=== PATIENT | male | born 1985 | race Caucasian/White ===

== ENCOUNTER 2016-12-19 14:28 | Emergency (ER) | payer OTHER ==
[~2016-12-19] VITALS: Ht 175.3 cm; Wt 95.9 kg
[2016-12-19 14:39] VITALS: TEMP 36.9; Ht 175.3 cm; Wt 95.9 kg
--- NOTE | 2016-12-19 15:45 | EMERGENCY ROOM VISIT NOTE ---
History Report prepared by Bia: Rafa Brown Under the Supervision of: Dr. Felicity Pisano D.O. First contact with patient: 15:00 Chief Complaint: OTHER COMPLAINT Stated Complaint: INADVERTENT OVERDOSE History of Present Illness The patient is a 31 year old male who presents to the Emergency Room with complaints of a sudden possible drug poisoning that began prior to arrival. 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 He states that he smelled what he thought to be marijuana. The patient states that he asked the patient to give him the substance and asked what it was. He was told that it was black dust. The patient states that there is known K2 going around their facility. He states that the substance was rolled into a cigarette and taken to be tested. The patient states that the CO threw the substance in the trash. He states that he then started feeling spacey, had difficulty forming sentences, and became hot. The patient states that he noticed his heart rate increase, and noticed his emotions go all over the place. He additionally reports difficulty focusing. The patient states that he was evaluated at medical in the long term and was sent here for further testing and evaluation. He states that he was with his sergeant who is having no symptoms. The patient states that he almost lost control of his bladder. Source of History: patient Onset: prior to arrival Position: other (global) Quality: other (possible drug poisoning) Timing: other (sudden) Note: Associated Symptoms: heart rate increase, difficulty focusing, emotions all over the place, difficulty forming sentences, became hot, almost lost control of bladder. Review of Systems See HPI for pertinent positives & negatives. A total of 10 systems reviewed and were otherwise negative. Past Medical & Surgical Medical Problems: (1) Bronchitis (2) Finger fracture, left (3) Left elbow fracture Surgical Problems: (1) History of appendectomy Family History Patient reports no known family medical history. Social History Smoking Status: Current Some Day Smoker Alcohol Use: occasionally Housing Status: lives with significant other Occupation Status: employed Current/Historical Medications No Active Prescriptions or Reported Meds Allergies Coded Allergies: No Known Allergies (Unverified , 05/15/13) Physical Exam Vital Signs Date Time Temp Pulse Resp B/P Pulse Ox O2 Delivery O2 Flow Rate FiO2 12/19/16 16:33 82 17 96 12/19/16 16:05 130/75 12/19/16 16:03 77 15 96 12/19/16 15:33 81 20 97 12/19/16 15:28 78 17 97 12/19/16 15:04 132/89 12/19/16 14:58 77 16 97 12/19/16 14:57 Room Air 12/19/16 14:41 88 12/19/16 14:39 36.9 92 18 152/90 98 Room Air 12/19/16 14:35 152/90 Physical Exam General: The patient appears flushed. HEENT: Head - normocephalic and atraumatic Pupils are equal, round, and reactive to light. Extraocular eye muscles are intact, and sclera are anicteric. Nose - moist nasal mucosa without discharge. Mouth - moist buccal mucosa. Oropharynx is nonerythematous and there is no tonsillar exudate or edema noted. Neck: Supple; no JVD, nuchal rigidity, cervical lymphadenopathy. Heart: Tachycardic rate and rhythm. There is a normal S1 and S2 with no murmurs , clicks, or gallops appreciated. Lungs: Clear to auscultation bilaterally with no wheezes, rales, or rhonchi. Abdomen: Soft, completely nontender, nondistended, with good bowel sounds. There are no palpable pulsatile masses or hepatosplenomegaly. There is no guarding, rigidity, or rebound noted. Extremities: No evidence of cyanosis, clubbing, or edema. There are easily palpable peripheral pulses. Skin: warm and dry with good turgor and no rashes. Medical Decision & Procedures Laboratory Results Test 12/19/16 14:20 Urine Opiates Screen NEG (NEG) Urine Methadone, Qualitative NEG (NEG) Urine Barbiturates NEG (NEG) Urine Phencyclidine (PCP) Level NEG (NEG) Ur Amphetamine/Methamphetamine NEG (NEG) MDMA (Ecstasy) Screen NEG (NEG) Urine Benzodiazepines Screen NEG (NEG) Urine Cocaine Metabolite NEG (NEG) Urine Marijuana (THC) NEG (NEG) Laboratory results per my review. ED Course 1313: Past medical records reviewed. The patient was evaluated in room B9. A complete history and physical exam was performed. A urine tox screen was obtained. The patient was in no acute distress on my physical exam. He was allowed to rest comfortably in a quiet room. His vital signs returned to normal. We did some further investigation with the inmate who was also a patient here in the emergency Department with regards to what the drug was that he was using. He referred to it as "black dust." He thought that it was a synthetic marijuana. Sometimes black dust refers to PCP. 1637: I reevaluated the patient and he is feeling much better. I discussed the exam findings with the patient and I discussed the treatment plan. He verbalized complete understanding and agreement. He is ready to go home. Medical Decision The patient is a 31 year old male who presents to the ED with a sudden possible drug poisoning. Differential diagnosis includes inhalation poisoning, transdermal poisoning. 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 It was thought to be synthetic marijuana or PCP. The patient began to have symptoms and felt disoriented. While the patient was here in the emergency department the symptoms have subsided. The patient did touch the rolled cigarette being used by the inmate but I do not believe that this was a absorption type poisoning more likely inhalation from the smoke. The patient was told to return to the emergency department if he had worsening symptoms. Impression Primary Impression: Accidental poisoning by drug Scribe Attestation The scribe's documentation has been prepared under my direction and personally reviewed by me in its entirety. I confirm that the note above accurately reflects all work, treatment, procedures, and medical decision making performed by me. Departure Information Dispostion Home / Self-Care Prescriptions No Active Prescriptions or Reported Meds Referrals Justice Jordan III, M.D. (PCP) Forms HOME CARE DOCUMENTATION FORM, IMPORTANT VISIT INFORMATION, WORK / SCHOOL INSTRUCTIONS Patient Instructions My [facility] Additional Instructions REst. Return to the ER for any worsening symptoms
[2016-12-19 16:05] VITALS: BP 130/75
[2016-12-19 16:05] LABS: BENZODIAZEPINE, URINE NEG (NEG); COCAINE,URINE NEG (NEG); PHENCYCLIDINE, URINE NEG (NEG)
[2016-12-19 16:33] VITALS: PULSE 82; O2SAT 96
== END 2016-12-19 17:01 | disposition home or self-care (01) ==
LOC: EDBD 14:28 → C.EDB 14:29
DX: T40.7X1A Poisoning by cannabis (derivatives), accidental (unintentional), initial encounter (principal); Y92.89 Other specified places as the place of occurrence of the external cause; Y99.0 Civilian activity done for income or pay; F17.200 Nicotine dependence, unspecified, uncomplicated; Z87.81 Personal history of (healed) traumatic fracture; Z98.890 Other specified postprocedural states

== ENCOUNTER 2017-01-11 18:56 | Emergency (ER) | payer OTHER ==
[~2017-01-11] VITALS: Ht 175.3 cm; Wt 94.0 kg
[2017-01-11 19:03] VITALS: TEMP 36.7; Ht 175.3 cm; Wt 94.0 kg
[2017-01-11] MEDS ORDERED: XYLOCAINE 1%/SOD BICARB 20 ML VIAL INFIL STA (19:28)
[2017-01-11] MEDS ORDERED: BUPIVACAINE 0.5 % 5 MG/1 ML MPF 30ML VIAL INFIL STA (19:28)
[2017-01-11] MEDS ORDERED: CETI10TA84 PO (19:35)
--- NOTE | 2017-01-11 20:03 | DIAGNOSTIC IMAGING REPORT ---
LEFT THUMB RADIOGRAPHS CLINICAL HISTORY: Left thumb nail partial amputation COMPARISON: None FINDINGS: Alignment of the left thumb is anatomic. There is no acute fracture. Joint spaces are preserved. IMPRESSION: No acute fracture or dislocation of the left thumb. Electronically signed by: Catrachito Be M.D. 01/11/2017 8:02 PM Dictated Date/Time: 01/11/2017 8:01 PM
--- NOTE | 2017-01-11 20:48 | EMERGENCY ROOM VISIT NOTE ---
ED Visit Note First contact with patient: 19:20 Chief Complaint: "Left thumbnail partially removed". History of Present Illness: This patient is a 31-year-old male who presents to the Emergency Department via private vehicle for evaluation of their left thumb nail partial removal/laceration . Patient sustained the injury 1 hour prior to arrival, while at home attempting to move retaining block. He believes it as he was transporting one of the blocks, his left medial aspect of the fingernail caught a block causing it to be partially disrupted. He immediately ran this under water, and covered with a bandage. He went to [facility], who sent him here. He rates his pain as a 4/10. There is moderate bleeding at the time of injury. He is left-handed. His tetanus is up-to-date as of 3 years ago. He denies any numbness or tingling in the distal extremity Medications: None Allergies: No known allergies PMH: Bronchitis, appendectomy, plate and screws of leg SHx: Patient lives at home with ROS: All pertinent positive and negative review of systems are appropriately documented in the History of Present Illness. Physical Exam: VITAL SIGNS - Vital signs and nursing notes were reviewed. GENERAL -31-year-old male appearing his stated age who is in no acute distress. Communicates well with provider and answers questions appropriately. SKIN - the left thumb nail is slightly displaced, distally displaced at the location of the lateral insertion of the fingernail. Fingernail is partially lifted up over top of the skin. This is for greater than half the fingernail. It does appear to be still intact. There is a small associated laceration at the side of the nailbed. There is no active bleeding noted. MUSCULOSKELETAL - Laceration as described above. +5/5 strength appreciated of the affected digit. Full range of motion of the affected digit. NEUROLOGIC -he is neurovascularly intact in the affected digit. VASCULAR - Capillary refill was brisk. IMAGING: LEFT THUMB RADIOGRAPHS CLINICAL HISTORY: Left thumb nail partial amputation COMPARISON: None FINDINGS: Alignment of the left thumb is anatomic. There is no acute fracture. Joint spaces are preserved. IMPRESSION: No acute fracture or dislocation of the left thumb. Electronically signed by: Catrachito Be M.D. 01/11/2017 8:02 PM Dictated Date/Time: 01/11/2017 8:01 PM ED Course: Patient was seen and evaluated by myself. Risks and benefits of performing primary wound closure with nail bed repair versus no repair were discussed with the patient who verbalizes understanding. Verbal consent was obtained prior to performing the procedure. Radiograph was obtained of the thumb to rule out fracture secondary to mechanism of injury and presentation. 6 cc of 50/50 ratio 1% buffered lidocaine and 0.5%. Cane was used to perform a digital block of the left first digit. The wound was cleansed and prepped in the typical sterile fashion utilizing normal saline and Betadine. The wound was sterilely draped. Once proper anesthetization was established, the wound was further examined and demonstrated a near completely removed nail, that with gentle manipulation was lifted, and was cleansed underneath. This region was then gently placed back under the cuticle to restore anatomic location. Patient tolerated this very well and noted that he felt 0 pain after anesthetization. The wound was copiously irrigated with normal saline. The nail was then distally tacked using 2 simple, 4-0 nylon sutures with the nail being from was secured in anatomic position. There was no laceration underneath the nail. Nail bed was intact. It did appear healthy. There is a small piece of skin that continued to remain adhered to the nail at the lateral medial most aspect. This was excised. Patient tolerated the procedure well. No complications were met. The wound was cleansed and dressed with a Bacitracin dressing. Patient was offered metal splint for fixation and declined. Patient educated on worrisome symptoms for return visit to the Emergency Department. Patient discharged to home in good condition. In the evaluation and treatment of this patient, the following differential diagnoses were considered: Finger Fracture, Finger Dislocation, Finger Sprain, Finger Contusion, Jersey Finger, or Mallet Finger. Problem List Medical Problems: (1) Bronchitis Status: Resolved (2) Finger fracture, left Status: Resolved (3) Left elbow fracture Status: Resolved Surgical Problems: (1) History of appendectomy Status: Resolved Current/Historical Medications Scheduled Cetirizine (Zyrtec), 10 MG PO DAILY Allergies Coded Allergies: No Known Allergies (Unverified , 01/11/17) Vital Signs Date Time Temp Pulse Resp B/P Pulse Ox O2 Delivery O2 Flow Rate FiO2 01/11/17 20:50 73 18 141/78 99 Room Air 01/11/17 19:03 36.7 68 18 132/85 96 Room Air Departure Information Impression Primary Impression: Injury to thumb (nail) Dispostion Home / Self-Care Condition GOOD Referrals Justice Jordan III, M.D. (PCP) Patient Instructions My [facility] Additional Instructions Discharge Instructions: You have received 2 sutures on your thumb nail. These sutures are NOT dissolvable and WILL need to be removed by a health care provider in 12 days. You can return to the Emergency Department or contact your Primary Care Provider to have the sutures removed. Proper wound care is essential for adequate wound healing and infection prevention. You can shower and clean the wound with soap and water. Do not scour over the wound, pat dry with a towel. Do not submerse the wound (i.e. bathe or dish wash) until the sutures have been removed. You can use an antibiotic ointment with a dressing over the wound for the next 3 days. After this time you may leave the wound dry and open to the air. If crust develops over the wound you can use a Q-tip to apply a 1:1 peroxide:water solution to clean the wound. Look for signs of infection of the wound including: increased pain, swelling, foul discharge, streaking, or increased temperature. If any of these are noticed you should return to the Emergency Department for further assessment and treatment. As with any laceration you may have received nerve damage to the surrounding tissues. This damage may or may not be permanent. You should keep the area covered with sunscreen for the first 6 months to 1 year when at risk for exposure to help minimize scarring. You can also use scar reducing creams or Vitamin E oil to help minimize scarring. For pain control, you can use the following [id number] medicines (if >12 yo): - Regular strength (325mg/tab) Tylenol (acetaminophen) 2 tabs every 4-6 hours as needed. Do not exceed 12 tablets in a 24 hour period. Avoid taking more than 3 grams (3000 mg) of Tylenol per day. This includes any other sources of acetaminophen you may take on a regular basis. - Regular strength (200 mg/tab) Advil (ibuprofen) 1-2 tabs every 4-6 hours as needed. Do not exceed a dose of 3200 mg per day. Return to the emergency department if your symptoms worsen despite treatment course outlined above. Please return to the emergency department with any new/concerning symptoms.
[2017-01-11 20:50] VITALS: BP 141/78; PULSE 73; O2SAT 99
== END 2017-01-11 20:57 | disposition home or self-care (01) ==
LOC: C.EDB 18:58 → C.EDD 20:57
DX: S61.112A Laceration without foreign body of left thumb with damage to nail, initial encounter (principal); Z79.899 Other long term (current) drug therapy; Z87.09 Personal history of other diseases of the respiratory system; Z87.828 Personal history of other (healed) physical injury and trauma; W23.0XXA Caught, crushed, jammed, or pinched between moving objects, initial encounter